=== PATIENT | female | born 1965 | race Caucasian/White ===

== ENCOUNTER 2019-10-04 13:10 | Emergency (ER) | payer OTHER, SELFPAY ==
[2019-10-04 13:25] VITALS: BP 146/72; PULSE 100; RESP 18; TEMP 36.8; O2SAT 100
--- NOTE | 2019-10-04 13:35 | ED.SKABFB ---
HPI - Skin/Abscess/Foreign Bdy General Chief complaint: Skin/Abscess/Foreign Body Stated complaint: rash/itchy Time Seen by Provider: 10/04/19 13:12 Source: patient Mode of arrival: ambulatory Limitations: no limitations History of Present Illness HPI narrative: 54-year-old female presents to urgent care with complaints of erythematous itchy rash diffusely to her bilateral arms, legs and right buttock since yesterday. Patient has been applying unai-vwu-wiyzkez cortisone cream and rubbing alcohol with little relief. Patient also reports that she has noticed redness and warmth to a new tattoo to her right upper arm. Patient denies fever, body aches, chills, nausea, vomiting or diarrhea. MD complaint: rash Onset (ago): day(s) (1) Severity: mild Associated symptoms: denies other symptoms Treatments prior to arrival: OTC topical medication Related Data Home Medications Medication Instructions Recorded Confirmed esomeprazole magnesium 20 mg 20 mg PO DAILY 03/26/19 10/04/19 capsule,delayed release Allergies Allergy/AdvReac Type Severity Reaction Status Date / Time No Known Allergies Allergy Verified 10/04/19 13:18 Review of Systems Review of Systems: All systems reviewed & are unremarkable except as noted in HPI and below Constitutional: Constitutional: Denies chills, Denies fatigue, Denies fever(s) and Denies weakness Cardiovascular: Cardiovascular: Denies chest pain and Denies radiating jaw, neck or arm pain Respiratory: Respiratory: Denies cough, Denies dyspnea and Denies wheezing Gastrointestinal: Gastrointestinal: Denies abdominal pain, Denies diarrhea, Denies nausea and Denies vomiting Integumentary/Breasts: Skin/Breast: Reports as per HPI, Reports pruritus, Reports erythema, Reports rash and Denies skin ulcer Neurologic: Denies vertigo, Denies dizziness and Denies syncope [facility] Past Medical History Medical History Anxiety Enlarged thyroid GERD without esophagitis Hip pain, left HTN (hypertension), benign Hypothyroidism Insomnia Mixed hyperlipidemia Syncope Thyroid nodule Surgical History Surgical History History of (~1990) History of (~1993) Family History Family History Father Hypertension Mother Hypertension Family history of coronary artery disease Spinal stenosis Other Arthritis Other Cerebrovascular accident Family history of cardiovascular disease Social History Social History Smoking packs per day: 0.75 Smoking cigarettes per day: 15.0 Years smoked: 30 Smoking pack-years: 22.50 Smoking status: Former smoker Tobacco type: cigarettes Second hand tobacco smoke exposure: No Smoking end date: 02/18/15 Alcohol intake: never Substance use: never Substance use type: does not use Gender identity (if verbalized by the patient): Female Exam Const: General: healthy appearing, no acute distress and alert Orientation/consciousness: patient oriented x3 Neck: Neck: normal visual inspection Resp: Effort & Inspection: normal respiratory effort and not labored Auscultation: clear to auscultation bilaterally and no wheezes Cardio: Rate: regular rate, not bradycardic and not tachycardic Rhythm: regular rhythm Heart sounds: no murmurs Skin: General skin exam: normal color, no jaundice and no pallor Wounds: no wounds Other: Erythematous vesicular rash noted to bilateral wrists, hands and bilateral thighs representing contact dermatitis. There is also mild erythema and warmth noted to tattoo to right upper arm. There is no streaking erythema, necrotic tissue, bruising or bleeding noted. Neuro: General: patient oriented x3, moves all extremities and no meningeal signs Psych: Appearance: grossly normal Mental Status:
== END 2019-10-04 13:55 | disposition home or self-care (01) ==
PROVIDERS: Emergency Provider Nurse Practitioner Family; PCP Family Medicine
DX: L03.113 Cellulitis of right upper limb (principal); L25.9 Unspecified contact dermatitis, unspecified cause; Z87.891 Personal history of nicotine dependence; K21.9 Gastro-esophageal reflux disease without esophagitis; I10 Essential (primary) hypertension; E03.9 Hypothyroidism, unspecified; E78.2 Mixed hyperlipidemia
CPT/HCPCS: 99213; G0463

== ENCOUNTER → 2021-07-06 14:43 | Outpatient (CLI) | payer OTHER, SELFPAY ==
--- NOTE | ~2021-07-06 | US_ITS ---
EXAMINATION: US thyroid DATE: 07/06/2021 15:04 INDICATION: Nontoxic single thyroid nodule. TECHNIQUE: Multiple ultrasound images of the thyroid were obtained. COMPARISON: Ultrasound 07/09/2016 FINDINGS: The right thyroid lobe measures 3.0 x 1.3 x 1.5 cm. The left thyroid lobe measures 3.3 x 0.9 x 0.9 c m. The thyroid demonstrates heterogeneous echogenicity. Vascularity is normal. In the right thyroid lobe, there is a 1.9 cm solid, isoechoic, kxuwa-ymyw-lgyc than tall nodule with ill-defined margin wi thout echogenic foci (TI-RADS TR4), stable from 11/20/2016 when biopsy was benign. IMPRESSION: 1. Stable thyroid nodule with benign biopsy results. Reviewed, dictated and finalized at location A.
== END ==
PROVIDERS: PCP Family Medicine; Visit Provider Family Medicine
DX: E04.1 Nontoxic single thyroid nodule (principal)
CPT/HCPCS: 76536

== ENCOUNTER 2021-11-10 13:32 | Emergency (ER) | payer OTHER, SELFPAY ==
[2021-11-10 13:57] VITALS: BP 140/70; PULSE 76; RESP 18; TEMP 36.6; O2SAT 98
--- NOTE | 2021-11-10 14:10 | ED.SKABFB ---
HPI - Skin/Abscess/Foreign Bdy General Chief complaint: Skin/Abscess/Foreign Body Stated complaint: Rt Jaw Swelling and Pain Time Seen by Provider: 11/10/21 14:10 Source: patient Mode of arrival: ambulatory History of Present Illness HPI narrative: 56-year-old female presented for complaint of right lower jaw pain and swelling worsening over the last 3 days. She states it started as marble size and then progressed to peach pit size, states today it is smaller. She has been using ice packs as needed and taking Tylenol or ibuprofen for pain. Denies trauma or injury. Denies nausea, vomiting, diarrhea, fevers or chills. She had a full dental removal about 15 years ago, with subsequent bone grafting, she glues her dentures into place daily. Currently denies any changes to the gums under the dentures. Related Data Home Medications Medication Instructions Recorded Confirmed esomeprazole magnesium 20 mg 20 mg PO DAILY 03/26/19 11/10/21 capsule,delayed release (Nexium) pantoprazole 40 mg tablet,delayed 40 mg PO BID 11/10/21 11/10/21 release Allergies Allergy/AdvReac Type Severity Reaction Status Date / Time No Known Allergies Allergy Verified 11/10/21 14:03 Review of Systems Review of Systems: CONSTITUTIONAL: Denies body aches, fever, chills ENT: Denies rhinorrhea, congestion, sore throat, or otalgia. Reports right jaw pain/swelling CARDIOVASCULAR: Denies chest pain, palpitations RESPIRATORY: Denies cough or dyspnea. SKIN: Denies rash, or wounds. MUSCULOSKELETAL: Denies myalgia. NEUROLOGIC: Denies headache, numbness, tingling, or weakness. [facility] Past Medical History Medical History Anxiety Cabezas esophagus Dysphagia Enlarged thyroid GERD (gastroesophageal reflux disease) GERD without esophagitis Hip pain, left HTN (hypertension), benign Hypothyroidism Insomnia Mixed hyperlipidemia Rash Syncope Thyroid nodule Surgical History Surgical History History of (~1990) History of (~1993) Family History Family History Father Hypertension Mother Hypertension Family history of coronary artery disease Spinal stenosis Other Arthritis Other Cerebrovascular accident Family history of cardiovascular disease Social History Social History Smoking packs per day: 0.75 Smoking cigarettes per day: 15.0 Years smoked: 30 Smoking pack-years: 22.50 Smoking status: Former smoker Tobacco type: cigarettes Second hand tobacco smoke exposure: No Smoking end date: 02/18/15 Alcohol intake: never Substance use: never Substance use type: does not use Gender identity (if verbalized by the patient): Female Sexual Orientation (if Verbalized by the Patient): Straight or Heterosexual Comments At time of signature, I have reviewed and agree with nursing past medical, surgical, social and family history unless otherwise noted. Please see nursing chart for further information. There is no relevant family history pertinent to the presenting complaint Exam Narrative: GENERAL: Appears in pain; no acute distress. HEAD: Normocephalic, atraumatic. EYES: EOMI. No redness or drainage. Conjunctivae normal. ENT: right lower jaw with approx 2cm diameter subcutaneous nodule approx region of tooth #29 pt edentulous; mild redness and tenderness externally without apparent cellulitis, no fluctuance or drainage, dentures glued in place to upper and lower gums, no gum tenderness; Mucous membranes pink and moist. TMs normal bilaterally. Throat normal. Uvula midline. NECK: No lymphadenopathy. CHEST: Clear to auscultation. HEART: Regular rate and rhythm. No murmur appreciated. SKIN: Warm, dry, no rash. Normal skin turgor. NEURO: Alert and oriented x3.
== END 2021-11-10 14:26 | disposition home or self-care (01) ==
PROVIDERS: Emergency Provider Nurse Practitioner Family; PCP Family Medicine
DX: L02.01 Cutaneous abscess of face (principal); K22.70 Barrett's esophagus without dysplasia; K21.9 Gastro-esophageal reflux disease without esophagitis; I10 Essential (primary) hypertension; E03.9 Hypothyroidism, unspecified; E78.2 Mixed hyperlipidemia; Z87.891 Personal history of nicotine dependence
CPT/HCPCS: 99213; G0463

== ENCOUNTER 2022-05-10 12:28 | Outpatient (CLI) | payer OTHER, SELFPAY ==
--- NOTE | ~2022-05-10 | XR_ITS ---
EXAMINATION: XR mandible min 4V INDICATION: Painful lump in the right side of the mandible TECHNIQUE: Six views of the mandible are obtained. COMPARISON: CT 07/11/2018 FINDINGS: Bone alignment is normal. No fracture is identified. No definite mass is seen. The patient is edentulous. The visualized cervical spine is unremarkable. IMPRESSION: 1. No radiographic correlate for the patient's symptoms. Consider further evaluation with CT if indic ated. Reviewed, dictated and finalized at location L. IMPRESSION: 1. No radiographic correlate for the patient's symptoms. Consider further evalu ation with CT if indicated.
== END 2022-05-10 12:29 | disposition home or self-care (01) ==
PROVIDERS: PCP Family Medicine; Visit Provider Family Medicine
DX: M27.8 Other specified diseases of jaws (principal)
CPT/HCPCS: 70110

== ENCOUNTER 2022-08-16 13:15 | Outpatient (CLI) | payer OTHER, SELFPAY ==
[2022-08-16 15:16] LABS: Alanine Aminotransferase 31 U/L (6-35); Albumin Level 4.2 g/dL (3.5-5.1); Alkaline Phosphatase 107 U/L (38-126); Anion Gap 10 mmol/L (8-16); Aspartate Amino Transferase 27 U/L (14-36); Bilirubin,Total 0.5 mg/dL (0.2-1.3); Blood Urea Nitrogen 14 mg/dL (7-17); Calcium 8.8 mg/dL (8.4-10.2); Carbon Dioxide 25 mmol/L (22-30); Chloride 106 mmol/L (98-107); Estimated Glomerular Filt Rate > 60; Glucose 159 mg/dL (65-110); Potassium 3.9 mmol/L (3.4-5.0); Sodium 141 mmol/L (137-145)
[2022-08-16 15:45] LABS: Thyroid Stimulating Hormone 0.545 uIU/mL (0.465-4.680)
[2022-08-16 17:02] LABS: Hemoglobin A1C 6.1 % (<5.7)
== END 2022-08-16 13:16 | disposition home or self-care (01) ==
LOC: ANHLAB 13:17
PROVIDERS: PCP Family Medicine; Visit Provider Physician Assistant
DX: R73.01 Impaired fasting glucose (principal); I10 Essential (primary) hypertension; E03.9 Hypothyroidism, unspecified
CPT/HCPCS: 36415; 80053; 83036; 84443

== ENCOUNTER → 2022-09-21 08:14 | Outpatient (CLI) | payer OTHER, SELFPAY ==
--- NOTE | ~2022-09-21 | CT_ITS ---
Clinical Indication: Chest pain, abdominal pain CT Scan of the Chest, Abdomen, and Pelvis with Contrast: Technique: Contiguous sections were acquired throughout the chest, abdomen, and pelvis after intraven ous administration of 100 cc of Omnipaque 350. Dose reduction technique was used on this scan by uti lizing automated exposure control and iterative reconstruction technique. The dose-length product (DL P) was 1014.82 mGy-cm. Findings: There is no evidence of any significant mediastinal, hilar or axillary lymphadenopathy. The mediastin al soft tissues and vascular structures appear normal. There is no evidence of pleural or pericardial effusion. Probable right apical scarring versus other consolidation. There is a 5 mm right upper lobe pulmonary nodule (axial image 25). Additional 3 mm right upper lobe pulmonary nodule present (axial image 30). The liver, spleen, pancreas, gallbladder, adrenals and kidneys are within normal limits. There are at herosclerotic calcifications of the aorta. No lymphadenopathy. No bowel obstruction or bowel wall thickening. There is no evidence to suggest acute appendicitis. Urinary bladder is unremarkable. No adnexal mass seen. No ascites. Impression: Probable biapical scarring, less likely pneumonia. 5 mm and 3 mm right upper lobe pulmonary nodules. According to Fleischner Society criteria, for a low -risk patient, no further follow-up required. For a high-risk patient, consider 12 month follow-up CT . No significant abnormality seen in the abdomen or pelvis. Reviewed, dictated and finalized at [facility]. Impression: Probable biapical scarring, less likely pneumonia. 5 mm and 3 mm right upper lobe pulmonary nodules. According to Fleischner Socie ty criteria, for a low-risk patient, no further follow-up required. For a high- risk patient, consider 12 month follow-up CT. No significant abnormality seen in the abdomen or pelvis.
[2022-09-21 08:37] LABS: Estimated Glomerular Filt Rate > 60
== END ==
PROVIDERS: PCP Family Medicine
DX: R10.11 Right upper quadrant pain (principal); R91.8 Other nonspecific abnormal finding of lung field
CPT/HCPCS: 71260; 74177; Q9967

== ENCOUNTER 2022-11-02 14:14 | Outpatient (CLI) | payer OTHER, SELFPAY | END 2022-11-02 14:15 | disposition home or self-care (01) | LOC: ANHLAB 14:15 | PROVIDERS: PCP Family Medicine; Visit Provider Physician Assistant | DX: N39.0 Urinary tract infection, site not specified (principal); R30.0 Dysuria | CPT/HCPCS: 87077; 87086; 87186 ==

== ENCOUNTER 2024-01-24 09:37 | Outpatient (CLI) | payer OTHER, SELFPAY ==
[2024-01-24 10:31] LABS: Cholesterol 279 mg/dL (0-200); HDL Direct 37 mg/dL; Triglycerides 319 mg/dL (<150)
[2024-01-24 10:42] LABS: LDL Cholesterol Direct 171 mg/dL
== END 2024-01-24 09:38 | disposition home or self-care (01) ==
PROVIDERS: PCP Family Medicine; Visit Provider Physician Assistant
DX: E78.2 Mixed hyperlipidemia (principal)
CPT/HCPCS: 36415; 80061

== ENCOUNTER 2024-12-23 13:29 | Outpatient (CLI) | payer OTHER, SELFPAY ==
--- NOTE | ~2024-12-23 | XR_ITS ---
XR lumbar spine 2-3V Indication: Polyarthralgia Comparison: None Findings: The vertebral heights are intact. No fracture or subluxation. The disc heights are intact. Soft tissues unremarkable Impression: No acute abnormality. Reviewed, dictated and finalized at location P. OLOGIST TECHNOLOGIST Impression: No acute abnormality.
--- NOTE | ~2024-12-23 | XR_ITS ---
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 Findings: No acute fracture or malalignment. No significant degenerative changes. Soft tissues unremarkable. Impression: No acute fracture or malalignment. Reviewed, dictated and finalized at location P. IRER FINISHED METAL Impression: No acute fracture or malalignment.
--- NOTE | ~2024-12-23 | XR_ITS ---
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 Findings: No acute fracture or malalignment. No significant degenerative changes. Soft tissues unremarkable. Impression: No acute fracture or malalignment. Reviewed, dictated and finalized at location P. O SURVEY WORKER Impression: No acute fracture or malalignment.
--- NOTE | ~2024-12-23 | XR_ITS ---
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 Findings: No acute fracture or malalignment. No significant degenerative changes. Soft tissues unremarkable. Impression: No acute fracture or malalignment. Reviewed, dictated and finalized at location P. LE CATCHER Impression: No acute fracture or malalignment.
--- NOTE | ~2024-12-23 | XR_ITS ---
EXAMINATION: XR hip BI 2V w AP pelvis, 12/23/2024 13:40 FIRE TENDER HISTORY: Polyarthralgia COMPARISON: No comparisons available. Findings: No acute fracture or malalignment. No significant degenerative changes. Soft tissues unremarkable. Impression: No acute fracture or malalignment. Reviewed, dictated and finalized at location P. TENDER Impression: No acute fracture or malalignment.
--- NOTE | ~2024-12-23 | XR_ITS ---
EXAMINATION: XR_KNEE1-2VRT_CR, 12/23/2024 13:40 CHAIR PAD MAKER HISTORY: Polyarthralgia COMPARISON: No comparisons available. Findings: No acute fracture or malalignment. No significant degenerative changes. Soft tissues unremarkable. Impression: No acute fracture or malalignment. Reviewed, dictated and finalized at location P. R PAD MAKER Impression: No acute fracture or malalignment.
== END 2024-12-23 13:30 | disposition home or self-care (01) ==
PROVIDERS: PCP Physician Assistant Medical; Visit Provider Internal Medicine Rheumatology
DX: M25.50 Pain in unspecified joint (principal); R53.83 Other fatigue; M79.10 Myalgia, unspecified site; M54.89 Other dorsalgia
CPT/HCPCS: 72100; 73120; 73521; 73560